=== PATIENT | female | born 1955 | race Caucasian/White ===

== ENCOUNTER 2024-06-13 13:23 | Emergency (ER) | payer MEDICARE ==
[~2024-06-13] VITALS: Ht 167.6 cm; Wt 97.3 kg
[2024-06-13 13:25] VITALS: TEMP 97.7
[2024-06-13] MEDS ORDERED: NS 1,000 ML IV ONE (13:45)
[2024-06-13] MEDS ORDERED: fentaNYL 50 MCG/ML 2 ML VIAL IV ONE ×3 (13:45→19:00)
[2024-06-13 13:50] LABS: BASO # 0.1 K/mm3 (0.0-0.2); BASO % 0.6 % (0.0-2.0); EOS # 0.1 K/mm3 (0.0-0.7); EOS % 1.6 % (0.0-4.0); GRAN # 5.9 K/mm3 (1.4-6.5); GRAN % 69.4 % (42.2-75.2); HEMOGLOBIN 11.8 g/dl (12.5-16.0); LYMPH # 1.4 K/mm3 (1.2-3.4); LYMPH % 16.8 % (20.0-51.0); MEAN CELL VOLUME 99 fl (80.0-100.0); MEAN CORPUSCULAR HEMOGLOBIN 32 pg (27-31); MEAN CORPUSCULAR HGB CONC 32 g/dl (33.0-37.0); MEAN PLATELET VOLUME 9.8 fl (7.4-10.4); MONO # 0.9 K/mm3 (0.1-0.6); MONO % 10.7 % (1.7-9.3); PLATELET COUNT 245 K/mm3 (130-400); RED BLOOD COUNT 3.74 M/mm3 (4.10-5.30); REDCELL DISTRIBUTION WIDTH-CV 15.4 % (11.5-14.5)
[2024-06-13 13:56] LABS: HEMATOCRIT 36.9 % (37.0-47.0)
[2024-06-13 14:08] LABS: ALBUMIN 3.6 g/dL (3.4-4.8); BILIRUBIN,TOTAL 0.4 mg/dL (0.2-1.2); CALCIUM 9.7 mg/dL (8.4-10.2); CREATININE, serum 1.23 mg/dL (0.57-1.11); POTASSIUM 3.6 mEq/L (3.5-4.5); TOTAL PROTEIN 7.5 g/dl (6.2-8.1)
[2024-06-13] MEDS ORDERED: NS 100 ML IV SCH (14:28)
[2024-06-13] MEDS ORDERED: Iohexol 300 - 100 ML VIAL IV ONE (14:28)
[2024-06-13] MEDS ORDERED: fentaNYL 50 MCG/ML 2 ML VIAL IV PRN (18:00)
[2024-06-13 18:50] VITALS: BP 122/69; PULSE 61
== END 2024-06-13 18:50 | disposition short-term general hospital (02) ==
LOC: COL.ER 13:23
PROVIDERS: Emergency Medicine
DX: S22.41XA Multiple fractures of ribs, right side, initial encounter for closed fracture (principal); S27.0XXA Traumatic pneumothorax, initial encounter; D64.9 Anemia, unspecified; V80.010A Animal-rider injured by fall from or being thrown from horse in noncollision accident, initial encounter
CPT/HCPCS: J3010; J7030; Q9967